=== PATIENT | female | born 1965 | race Caucasian/White ===

== ENCOUNTER 2018-09-26 19:58 | Emergency (ER) | payer SELFPAY ==
[~2018-09-26] VITALS: Ht 172.7 cm; Wt 68.0 kg
[2018-09-26] MEDS ORDERED: SODIUM CHLORIDE 0.9% 1,000 ML IV ONE (20:15)
[2018-09-26 21:10] LABS: BASOPHILS % 0.2 % (0.0-2.0); EOSINOPHILS % 0.2 % (0.0-5.0); HEMOGLOBIN. 13.3 g/dL (12.0-16.0); LYMPHOCYTES % 45.3 % (20.0-50.0); MEAN PLATELET VOLUME 8.5 fl (7.4-10.4); MONOCYTES % 6.7 % (2.0-8.0); NEUTROPHILS % 47.6 % (40.0-76.0); PLATELET 261 x1000/uL (130-400); RED BLOOD CELL COUNT 4.15 mill/uL (4.2-5.4); RED CELL DISTRIBUTION WIDTH 12.8 % (11.6-14.6)
[2018-09-26 21:18] LABS: ETHANOL BLOOD < 10 mg/dL; INR 0.9; PARTIAL THROMBOPLASTIN TIME 25.8 sec (23.4-31.0); PROTHROMBIN TIME 9.4 sec (9.1-11.1)
[2018-09-26 21:23] LABS: CHLORIDE 112 mEq/L (98-107)
[2018-09-26] MEDS ORDERED: LEVETIRACETAM 500MG PREMIX 100 ML IV ONE ×2 (23:00)
[2018-09-27 03:38] VITALS: BP 118/65
[2018-09-29 10:06] LABS: TOPIRAMATE 3.1 ug/mL (2.0-25.0)
== END 2018-09-27 03:39 | disposition home or self-care (01) ==
LOC: ER 19:58
DX: R07.89 Other chest pain (principal); G40.909 Epilepsy, unspecified, not intractable, without status epilepticus
CPT/HCPCS: 36415; 71045; 80053; 80201; 80320; 83880; 84484; 85025; 85610; 85730; 93005; 96365; 96366; 99284; J1953; J7030; G0480